=== PATIENT | male | born 1960 ===

== ENCOUNTER 2017-03-14 16:06 | Emergency (ER) | payer SELFPAY ==
[~2017-03-14] VITALS: Ht 177.8 cm; Wt 90.0 kg
[2017-03-14] MEDS ORDERED: ketorolac trometh. 30mg/ml inj. IM ONE (16:50)
[2017-03-14 18:44] VITALS: BP 111/48
== END 2017-03-14 18:46 | disposition home or self-care (01) ==
LOC: ER 16:09
DX: R51 Headache (principal); F10.129 Alcohol abuse with intoxication, unspecified; M54.2 Cervicalgia; H53.8 Other visual disturbances; R07.89 Other chest pain; Z87.891 Personal history of nicotine dependence
CPT/HCPCS: 36415; 80320; 99283